=== PATIENT | male | born 1960 | race Caucasian/White ===

== ENCOUNTER 2018-02-06 11:33 | Emergency (ER) | payer OTHER ==
[2018-02-06] MEDS ORDERED: KETOROLAC 30 MG/ML INJ ONE (13:27)
[2018-02-06 13:35] LABS: Urine Blood NEGATIVE (NEG); Urine Glucose NEGATIVE (NEG); Urine Protein NEGATIVE (NEG); Urine Specific Gravity 1.015 (1.005-1.030)
[2018-02-06 13:41] LABS: Urine Bacteria <20 /HPF (NONE SEEN); Urine Culture Reflex Order NOT NEEDED; Urine RBC <5 /HPF (NONE SEEN)
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
== END 2018-02-06 14:04 | disposition home or self-care (01) ==
LOC: ER 11:33
DX: I11.9 Hypertensive heart disease without heart failure (principal); I10 Essential (primary) hypertension; F41.9 Anxiety disorder, unspecified; F32.9 Major depressive disorder, single episode, unspecified; F10.20 Alcohol dependence, uncomplicated
CPT/HCPCS: 81003; 81015; 96372; 99283

== ENCOUNTER 2019-11-23 09:36 | Emergency (ER) | payer MEDICARE ==
--- OUTSIDE RECORDS SUMMARY | 2019-11-23 09:38 | XMS REPORT | Continuity of Care Document ---
:1960 Author Organization [facility] t Address [address] [place] [address] Care Team Providers Name Role Phone UNKNOWN Primary Care Physician Unavailable Fernandez LOPEZ Attending Clinician Unavailable Fernandez LOPEZ Admitting Clinician Unavailable Problems Condition Condition Condition Status Onset Resolution Last Treating Co mments Source Name Details Category Date Date Treatment Clinician Date Pain in Pain in Diagnosis [facility] Subacromia Subacromia Diagnosis Active [facility] bursitis l bursitis Regina kes - of right of right [facility] a shoulder shoulder l [facility] Impingemen Impingemen Diagnosis Active [facility] syndrome t syndrome Regina kes - of right of right [facility] a shoulder shoulder l [facility] Allergies, Adverse Reactions, Alerts This patient has no known allergies or adverse reactions. Medications Ordered Filled Start Stop Current Ordering Indication Dosage Frequency Signature Comments Components Source Medication Medication Date Date Medication? Clinician (SIG) Name Name Lillie Moreira 2019- No [facility] [address] [facility] 09[facility]10 [facility] Terazosin Terazosin Yes [facility] not [facility] HCl HCl [facility] Metformin Metformin Yes [facility] not [facility] HCl HCl [facility] Aspir-81 Aspir-81 Yes [facility] [address] [facility] Gabapentin Gabapentin Yes [facility] not [facility] Procedures This patient has no known procedures. Encounters Start End Encounter Admission Attending Care Care Encounter Source Date/Time Date/Time Type Type Clinicians Facility Department ID 2018-09-10 2018-09-10 [facility] [id number] [facility] [address] 08:30[facility] 08[facility] 2016-11-30 2016-11-30 [id number] 04[facility]:00:00 [facility] Results Test Description Test Time Test Comments Results Result Comments Source POC Glucose, Blood 2016-12-04 11:49:00 Test Item Value Reference Range Interpretation Comme nts POC Glucose (test code = 100 mg/dL 70-115 N If you consider your patient POCGLUC) critically ill, the Be Accu-Chek InformII meters hould not be used for Glucose determi nations.Draw a venous Glucose and sen d to the Main Lab for Analysis. POC Glucose, [id number] 15:29:00 Test Item Value Reference Range Interpretation Comments POC Glucose (test 101 mg/dL 70-115 N Notify RN or MDIf you code = POCGLUC) consider you r patient critically ill, the Be Accu-Chek InformII metershould not be used for Glucose determinations. Draw a venous Glucose and send to the Main Lab for Analysis. POC Glucose, [id number] 12:07:00 Test Item Value Reference Range Interpretation Comments POC Glucose (test 100 mg/dL 70-115 N Notify RN or MDIf you code = POCGLUC) consider you r patient critically ill, the Be Accu-Chek InformII metershould not be used for Glucose determinations. Draw a venous Glucose and send to the Main Lab for Analysis. POC Glucose, [id number] 05:19:00 Test Item Value Reference Range Interpretation Comments POC Glucose (test 103 mg/dL 70-115 N If you con [employer] cleaner your code = POCGLUC) patient crit ically ill, the Be Accu- Chek InformII meters hould not be used for Glu cose determinations. Draw a venous Glucose and send to the Main Lab for Analysis. POC Glucose, [id number] 19:17:00 Test Item Value Reference Range Interpretation Comments POC Glucose (test 110 mg/dL 70-115 N If you con [employer] cleaner your code = POCGLUC) patient crit ically ill, the Be Accu- Chek InformII meters hould not be used for Glu cose determinations. Draw a venous Glucose and send to the Main Lab for Analysis. POC Glucose, [id number] 16:19:00 Test Item Value Reference Range Interpretation Comments POC Glucose (test 110 mg/dL 70-115 N Notify RN or MDIf you code = POCGLUC) consider you r patient critically ill, the Be Accu-Chek InformII metershould not be used for Glucose determinations. Draw a venous Glucose and send to the Main Lab for Analysis. POC Glucose, [id number] 11:39:00 Test Item Value Reference Range Interpretation Comments POC Glucose (test 95 mg/dL 70-115 N Notify RN or MDIf you code = POCGLUC) consider you r patient critically ill, the Be Accu-Chek InformII metershould not be used for Glucose determinations. Draw a venous Glucose and send to the Main Lab for Analysis. POC Glucose, [id number] 06:11:00 Test Item Value Reference Range Interpretation Comments POC Glucose (test 111 mg/dL 70-115 N If you con [employer] cleaner your code = POCGLUC) patient crit ically ill, the Be Accu- Chek InformII meters hould not be used for Glu cose determinations. Draw a venous Glucose and send to the Main Lab for Analysis. POC Glucose, [id number] 19:44:00 Test Item Value Reference Range Interpretation Comments POC Glucose (test 98 mg/dL 70-115 N If you con [employer] cleaner your code = POCGLUC) patient crit ically ill, the Be Accu- Chek InformII meters hould not be used for Glu cose determinations. Draw a venous Glucose and send to the Main Lab for Analysis. POC Glucose, [id number] 15:49:00 Test Item Value Reference Range Interpretation Comments POC Glucose (test 98 mg/dL 70-115 N If you con [employer] cleaner your code = POCGLUC) patient crit ically ill, the Be Accu- Chek InformII meters hould not be used for Glu cose determinations. Draw a venous Glucose and send to the Main Lab for Analysis. POC Glucose, [id number] 05:33:00 Test Item Value Reference Range Interpretation Comments POC Glucose (test 123 mg/dL 70-115 H If you con [employer] cleaner your code = POCGLUC) patient crit ically ill, the Be Accu- Chek InformII meters hould not be used for Glu cose determinations. Draw a venous Glucose and send to the Main Lab for Analysis. POC Glucose, [id number] 19:22:00 Test Item Value Reference Range Interpretation Comments POC Glucose (test 114 mg/dL 70-115 N If you con [employer] cleaner your code = POCGLUC) patient crit ically ill, the Be Accu- Chek InformII meters hould not be used for Glu cose determinations. Draw a venous Glucose and send to the Main Lab for Analysis. POC Glucose, [id number] 16:05:00 Test Item Value Reference Range Interpretation Comments POC Glucose (test 106 mg/dL 70-115 N If you con [employer] cleaner your code = POCGLUC) patient crit ically ill, the Be Accu- Chek InformII meters hould not be used for Glu cose determinations. Draw a venous Glucose and send to the Main Lab for Analysis. RPR, [id number] 14:27:00 Test Item Value Reference Range Interpretation Comments RPR (test code = RPR) Non-Reactive Non-Reactive N POC Glucose, [id number] 12:23:00 Test Item Value Reference Range Interpretation Comments POC Glucose (test 106 mg/dL 70-115 N If you con [employer] cleaner your code = POCGLUC) patient crit ically ill, the Be Accu- Chek InformII meters hould not be used for Glu cose determinations. Draw a venous Glucose and send to the Main Lab for Analysis. Lipid [id number] 09:42:00 Test Item Value Reference Range Interpretation Comments Cholesterol (test 224 mg/dL 0-200 H code = CHOL) Triglycerides (test 169 mg/dL 9-200 N code = TRIG) HDL (test code = 50 mg/dL 40-60 N HDL) Chol/HDL (test code 4.5 Ratio 0.0-5.0 N = CHOLPHDL) LDL, Calculated 140 0-130 H (NOTE)RISK O F HEART (test code = LDLC) DISEASEPu blished by [place] Heart AssociationAnal yte Optim al Boderline Increased RiskC HOL <200 200-239 >240TRI G <150 150-199 >200HDL Male: >60 <40HDL Female: >60 <50 LDL < 100 130-15 9 >160 LDL NEAR OPTIMAL IS 100- 129 VLDL (test code = 34 mg/dL 5-40 N VLDL) LDL/HDL (test code = 3 LDLPHDL) Thyroid Stimulating Hormone (TSH)2016-11-30 09:22:00 Test Item Value Reference Range Interpretation Comments TSH (test code = TSH) 5.30 mIU/mL 0.270-4.200 H
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
[2019-11-23] MEDS ORDERED: SMZ./TMP. 800/160 MG TABLET ONE (10:42)
[2019-11-23] MEDS ORDERED: CODEINE 30MG/APAP 300MG TAB ONE (10:43)
[2019-11-23 10:44] VITALS: BP 139/81; TEMP 98.1; O2SAT 99
== END 2019-11-23 10:40 | disposition home or self-care (01) ==
LOC: ER 09:36
DX: L02.12 Furuncle of neck (principal); I10 Essential (primary) hypertension; F10.20 Alcohol dependence, uncomplicated
CPT/HCPCS: 99283

== ENCOUNTER 2022-03-28 12:56 | Observation (INO) | payer OTHER ==
--- OUTSIDE RECORDS SUMMARY | 2022-03-28 12:59 | XMS REPORT | Continuity of Care Document ---
:1960 Author Organization [facility] t Address [address] [place] [address] Care Team Providers Name Role Phone UNKNOWN, REFFERING Primary Care Physician Unavailable ROSAS LOPEZ Attending Clinician Unavailable ROSAS LOPEZ Admitting Clinician Unavailable Problems Condition Condition Condition Status Onset Resolution Last Treating Co mments Source Name Details Category Date Date Treatment Clinician Date Subacromia Subacromia Diagnosis Active Common l bursitis l bursitis Sp manolo of right of right [facility] shoulder shoulder [facility] Impingemen Impingemen Diagnosis Active Common t syndrome t syndrome Sp manolo of right of right - [facility] shoulder [facility] Pain in Pain in Diagnosis Active Commo n joint of joint of Spirit right right [facility] shoulder [facility] Allergies, Adverse Reactions, Alerts This patient has no known allergies or adverse reactions. Medications Ordered Filled Start Stop Current Ordering Indication Dosage Frequency Signature Comments Components Source Medication Medication Date Date Medication? Clinician (SIG) Name Name Lillie Moreira 2019- No Chi 1 tablet Com 09-10 [facility] 00:00: 00:00 - [facility] 00 :00 [facility] Terazosin Terazosin Yes Chi not Co mmon HCl HCl Thacker defined [facility] Metformin Metformin Yes Chi not Co mmon HCl HCl Thacker defined [facility] Aspir-81 Aspir-81 Yes Chi not Comm on Thacker defined [facility] Gabapentin Gabapentin Yes Chi not Common Thacker defined [facility] Procedures This patient has no known procedures. Encounters Start End Encounter Admission Attending Care Care Encounter Source Date/Time Date/Time Type Type Clinicians Facility Department ID 2018-09-10 2018-09-10 [id number] Common 08:30:00 08:30:00 [facility] 2016-11-30 2016-11-30 Inpatient Reji LOPEZ, [facility] [id number] 04:00:00 04:00:00 [facility] Results Test Description Test Time Test Comments [...] the Main Lab for Analysis. POC Glucose, [id number] 15:29:00 Test Item Value Reference Range Interpretation Comments POC Glucose (test 101 mg/dL 70-115 N Notify RN or MDIf you code = POCGLUC) consider you r patient critically ill, the Be Accu-Chek InformII metershould not be used for Glucose determinations. Draw a venous Glucose and send to the Main Lab for Analysis. POC Glucose, [id number] 12:07:00 Test Item Value Reference Range Interpretation Comments POC Glucose (test 100 mg/dL 70-115 N Notify RN or MDIf you code = POCGLUC) consider you r patient critically ill, the Be Accu-Chek InformII metershould not be used for Glucose determinations. Draw a venous Glucose and send to the Main Lab for Analysis. POC Glucose, [id number] 05:19:00 Test Item Value Reference Range Interpretation Comments POC Glucose (test 103 mg/dL 70-115 N If you con body shop floorperson your code = POCGLUC) patient crit ically ill, the Be Accu- Chek InformII meters hould not be used for Glu cose determinations. Draw a venous Glucose and send to the Main Lab for Analysis. POC Glucose, [id number] 19:17:00 Test Item Value Reference Range Interpretation Comments POC Glucose (test 110 mg/dL 70-115 N If you con body shop floorperson your code = POCGLUC) patient crit ically ill, the Be Accu- Chek InformII meters hould not be used for Glu cose determinations. Draw a venous Glucose and send to the Main Lab for Analysis. POC Glucose, [id number] 16:19:00 Test Item Value Reference Range Interpretation Comments POC Glucose (test 110 mg/dL 70-115 N Notify RN or MDIf you code = POCGLUC) consider you r patient critically ill, the Be Accu-Chek InformII metershould not be used for Glucose determinations. Draw a venous Glucose and send to the Main Lab for Analysis. POC Glucose, [id number] 11:39:00 Test Item Value Reference Range Interpretation Comments POC Glucose (test 95 mg/dL 70-115 N Notify RN or MDIf you code = POCGLUC) consider you r patient critically ill, the Be Accu-Chek InformII metershould not be used for Glucose determinations. Draw a venous Glucose and send to the Main Lab for Analysis. POC Glucose, [id number] 06:11:00 Test Item Value Reference Range Interpretation Comments POC Glucose (test 111 mg/dL 70-115 N If you con body shop floorperson your code = POCGLUC) patient crit ically ill, the Be Accu- Chek InformII meters hould not be used for Glu cose determinations. Draw a venous Glucose and send to the Main Lab for Analysis. POC Glucose, [id number] 19:44:00 Test Item Value Reference Range Interpretation Comments POC Glucose (test 98 mg/dL 70-115 N If you con body shop floorperson your code = POCGLUC) patient crit ically ill, the Be Accu- Chek InformII meters hould not be used for Glu cose determinations. Draw a venous Glucose and send to the Main Lab for Analysis. POC Glucose, [id number] 15:49:00 Test Item Value Reference Range Interpretation Comments POC Glucose (test 98 mg/dL 70-115 N If you con body shop floorperson your code = POCGLUC) patient crit ically ill, the Be Accu- Chek InformII meters hould not be used for Glu cose determinations. Draw a venous Glucose and send to the Main Lab for Analysis. POC Glucose, [id number] 05:33:00 Test Item Value Reference Range Interpretation Comments POC Glucose (test 123 mg/dL 70-115 H If you con body shop floorperson your code = POCGLUC) patient crit ically ill, the Be Accu- Chek InformII meters hould not be used for Glu cose determinations. Draw a venous Glucose and send to the Main Lab for Analysis. POC Glucose, [id number] 19:22:00 Test Item Value Reference Range Interpretation Comments POC Glucose (test 114 mg/dL 70-115 N If you con body shop floorperson your code = POCGLUC) patient crit ically ill, the Be Accu- Chek InformII meters hould not be used for Glu cose determinations. Draw a venous Glucose and send to the Main Lab for Analysis. POC Glucose, [id number] 16:05:00 Test Item Value Reference Range Interpretation Comments POC Glucose (test 106 mg/dL 70-115 N If you con body shop floorperson your code = POCGLUC) patient crit ically ill, the Be Accu- Chek InformII meters hould not be used for Glu cose determinations. Draw a venous Glucose and send to the Main Lab for Analysis. RPR, [id number] 14:27:00 Test Item Value Reference Range Interpretation Comments RPR (test code = RPR) Non-Reactive Non-Reactive N POC Glucose, [id number] 12:23:00 Test Item Value Reference Range Interpretation Comments POC Glucose (test 106 mg/dL 70-115 N If you con body shop floorperson your code = POCGLUC) patient crit ically ill, the Be Accu- Chek InformII meters hould not be used for Glu cose determinations. Draw a venous Glucose and send to the Main Lab for Analysis. Lipid [id number] 09:42:00 Test Item Value Reference Range Interpretation Comments Cholesterol (test 224 mg/dL 0-200 H code = CHOL) Triglycerides (test 169 mg/dL 9-200 N code = TRIG) HDL (test code = 50 mg/dL 40-60 N HDL) Chol/HDL (test code 4.5 Ratio 0.0-5.0 N = CHOLPHDL) LDL, Calculated 140 0-130 H (NOTE)RISK O F HEART (test code = LDLC) DISEASEPu blished by Swedish Heart AssociationAnal yte Optimal Boderli ne Increased RiskC HOL <200 200-239 >240TR IG <150 150-199 >200HDL Male: >60 <40HDL Fema le: >60 <50LDL < 100 130-159 >160LDL NEAR OPTIMAL IS 100- 129 VLDL (test code = 34 mg/dL 5-40 N VLDL) LDL/HDL (test code = 3 LDLPHDL) Thyroid Stimulating Hormone (TSH)2016-11-30 09:22:00 Test Item Value Reference Range Interpretation Comments TSH (test code = TSH) 5.30 mIU/mL 0.270-4.200 H
--- NOTE | 2022-03-28 13:27 | RAD REPORT ---
EXAM DESCRIPTION: RAD - Chest Single View - 03/28/2022 1:20 pm CLINICAL HISTORY: syncope COMPARISON: CHEST SINGLE VIEW dated 06/11/2013; CHEST SINGLE VIEW dated 07/13/2009 FINDINGS: Lines: None. Lungs: No evidence of edema or pneumonia. Pleural: No significant pleural effusions or pneumothorax. Cardiac: The heart size is within normal limits. Mediastinum: Within normal limits. Bones: No acute fractures. Other: None IMPRESSION: No acute cardiopulmonary disease.
[2022-03-28 13:32] LABS: Absolute Lymphocytes (CBC) 1.6 K/uL (0.7-4.9); Hematocrit 42.1 % (39.6-49.0); Lymphocytes % 22.7 % (15.3-44.8); MCV 97.8 fL (80-100); MPV 8.7 fL (7.6-11.3)
[2022-03-28 13:56] LABS: Albumin 3.4 g/dL (3.4-5.0); Bilirubin Direct 0.4 mg/dL (0-0.2); Bilirubin Total 1.2 mg/dL (0.2-1.0); Protein, Total 7.1 g/dL (6.4-8.2); Troponin High Sensitivity 17.6 pg/mL (<58.9)
[2022-03-28 14:01] LABS: Magnesium 1.2 mg/dL (1.6-2.4)
[2022-03-28 14:02] LABS: Potassium 2.3 mmol/L (3.5-5.1)
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
[2022-03-28] MEDS ORDERED: POTASSIUM CL SA 10 MEQ TAB PO ONE (14:12)
[2022-03-28] MEDS ORDERED: Magnesium Sulfate 2gm IVPB 2 G/50 ML BAG IV ONE (14:12)
[2022-03-28] MEDS ORDERED: KCL 20 MEQ/100 mL IVPB 100 ML IV ONE (14:12)
[2022-03-28] MEDS ORDERED: NA CHLORIDE 0.9% 1,000 ML ONE (14:13)
[2022-03-28 14:38] LABS: Protime INR 1.04
[2022-03-28 14:43] LABS: Anisocytosis 1+; Blood Morphology Comment NOTED (NOT SEEN); Platelet Estimate DECR; White Blood Cell Scan OK (OK)
[2022-03-28 14:48] LABS: SARS-CoV-2 Antigen Rapid Res Negative (Negative)
--- NOTE | 2022-03-28 15:02 | EKG ---
Test Date: 2022-03-28 Test Time: 13:06:25 Straightedge Man: ALEJANDRA MEASUREMENT RESULTS: Intervals: Rate: 76 IN: 198 QRSD: 98 QT: 462 QTc: 519 [place]: P: 81 IN: 198 QRS: 72 T: 56 INTERPRETIVE STATEMENTS: Normal sinus rhythm Prolonged QT Abnormal ECG Compared to ECG 11/28/2016 17:05:46 Prolonged QT interval now present Electronically Signed On 03-28-22 15:02:10 MOVIE THEATER USHER by Pradeep Reed
[2022-03-28] MEDS ORDERED: HYDROCODONE/APAP 5/325 MG TAB PO PRN (15:27)
[2022-03-28] MEDS ORDERED: ACETAMINOPHEN 325 MG TABLET PO PRN (15:27)
[2022-03-28] MEDS ORDERED: ONDANSETRON 4 MG/2 ML VIAL IV PRN (15:30)
[2022-03-28] MEDS ORDERED: LORazepam 2 MG/ML VIAL IV PRN (15:37)
--- NOTE | 2022-03-28 15:40 | P.HP ---
Certification for Inpatient Patient admitted to: Observation With expected LOS: <2 Midnights Patient will require the following post-hospital care: None Practitioner: I am a practitioner with admitting privileges, knowledge of patient current condition, hospital course, and medical plan of care. Services: Services provided to patient in accordance with Admission requirements found in Title 42 Section 412.3 of the Code of Federal Regulations <LukaszmikelVan parekh Izabella - Last Filed: 03/28/22 19:26> Patient History Date of Service: 03/28/22 Reason for admission: Near syncope, DAWNA History of Present Illness: Patient is a 62-year-old male with a past medical history significant for alcohol abuse, anxiety disorder, depression, DM 2, hypertension who presents with complaint of hypotension and near syncope which occurred this morning while walking in his home. Patient reported that he took Viagra yesterday and drank some alcohol. As patient woke up this morning and was walking to the bathroom patient felt lightheaded, dizzy and almost passed out. Patient had to quickly sit down. Patient reported associated signs and symptoms of poor appetite and tremors. Patient denies any other signs or symptoms. Symptoms are aggravated or relieved by nothing. Patient was brought to the hospital for medical evaluation. - Past Medical/Surgical History -: Anxiety disorder -: Depression -: DM2 with neuropathy -: Alcohol abuse -: Hypertension Past Surgical History: Reviewed- Non-Contributory - Family History Family History: Reviewed- Non-Contributory - Social History Smoking Status: Unknown if ever smoked Smoking therapy provided: No Alcohol use: Yes CD- Drugs: No Caffeine use: Yes Place of Residence: Home <Van Fisher - Last Filed: 03/28/22 19:26> Date of Service: 03/29/22 <Chris Guevara - Last Filed: 03/29/22 11:11> Allergies No Known Drug Allergies Allergy (Unverified 03/19/14 22:03) Unknown No Known Allergies Allergy (Uncoded 11/30/16 03:03) Unknown Home Medications: Gabapentin 800 mg PO TID 03/28/22 Quetiapine Fumarate [Seroquel] 400 mg PO BEDTIME 03/28/22 chlordiazePOXIDE HCl [Librium*] See Rx Instructions .ROUTE .COMPLEX 4 Days #8 cap 03/29/22 Review of Systems General: Other (Poor appetite, treatments) Eyes: Unremarkable ENT: Unremarkable Respiratory: Unremarkable Cardiovascular: Light Headedness Gastrointestinal: Unremarkable Genitourinary: Unremarkable Musculoskeletal: Pedal edema Integumentary: Unremarkable Neurological: Other (Near syncope, dizziness ) Lymphatics: Unremarkable <PhillipNaderzaira Parekh - Last Filed: 03/28/22 19:26> Physical Examination - Physical Exam General: Alert, In no apparent distress, Oriented x3, Cooperative HEENT: Atraumatic, PERRLA, Mucous membr. moist/pink, EOMI, Sclerae nonicteric Neck: Supple, 2+ carotid pulse no bruit, No LAD, Without JVD or thyroid abnormality Respiratory: Clear to auscultation bilaterally, Normal air movement Cardiovascular: Regular rate/rhythm, Normal S1 S2 Capillary refill: <2 Seconds Gastrointestinal: Normal bowel sounds, Soft and benign, No tenderness Musculoskeletal: No clubbing, No swelling, No tenderness Integumentary: No rashes, No breakdown, No significant lesion Neurological: Normal gait, Normal speech, Normal tone, Normal affect Lymphatics: No axilla or inguinal lymphadenopathy - Studies Laboratory Data (last 24 hrs) 03/28/22 14:19: PT 11.4, INR 1.04, APTT 32.0 03/28/22 13:24: WBC 6.90, Hgb 14.6, Hct 42.1, Plt Count 124 L 03/28/22 13:24: Sodium 135 L, Potassium 2.3 L*, BUN 19 H, Creatinine 1.96 H, Gl ucose 104, Magnesium 1.2 L*, Total Bilirubin 1.2 H, AST 64 H, ALT 77 H, Alkaline Phosphatase 78 <Van Fisher - Last Filed: 03/28/22 19:26> - Studies Laboratory Data (last 24 hrs) 03/28/22 14:19: PT 11.4, INR 1.04, APTT 32.0 03/28/22 13:24: Phosphorus 2.7, Magnesium 1.2 L* 03/28/22 13:24: WBC 6.90, Hgb 14.6, Hct 42.1, Plt Count 124 L 03/28/22 13:24: Sodium 135 L, Potassium 2.3 L*, BUN 19 H, Creatinine 1.96 H, Glucose 104, Magnesium 1.2 L*, Total Bilirubin 1.2 H, AST 64 H, ALT 77 H, Alkaline Phosphatase 78 <Chris Guevara - Last Filed: 03/29/22 11:11> Assessment and Plan - Plan --Near syncope. Likely secondary to hypotension and volume depletion. We will get some understanding vital signs. Continue IV hydration. Continue supportive care. --DAWNA. Likely secondary to volume depletion. Continue IV hydration. We will continue to monitor renal functions. -- Hypokalemia\hypomagnesemia. Replete as needed. Will reassess levels. --Alcohol abuse. Patient with noted withdrawal Symptoms. Patient placed on banana bag, Librium and Ativan as needed. [facility] protocol. --Hypertension. Patient currently hypotensive. Hold off on BP meds. Continue IV hydration. We will continue to monitor blood pressure levels. --Anxiety disorder\depression. Continue home medication. --DM2 with neuropathy. BS monitoring with sliding scale insulin. Continue gabapentin for his neuropathy. --DVT prophylaxis with heparin subQ. Discharge Plan: Home Plan to discharge in: 48 Hours - Advance Directives Does patient have a Living Will: No Does patient have a Durable POA for Healthcare: No - Code Status/Comfort Care Code Status Assessed: Yes Physician Review: Patient Assessed, Agree with Above Assessment and Plan Critical Care: No <Van Fisher - Last Filed: 03/28/22 19:26> Physician Review: Patient Assessed, Agree with Above Assessment and Plan <Chris Guevara - Last Filed: 03/29/22 11:11>
[2022-03-28] MEDS ORDERED: LORazepam 2 MG/ML VIAL IV SCH (16:00)
[2022-03-28 16:29] LABS: Phosphorus 2.7 mg/dL (2.5-4.9); Thyroid Stimulating Hormone 3.59 uIU/mL (0.358-3.740)
[2022-03-28 16:30] LABS: Magnesium 1.2 mg/dL (1.6-2.4)
[2022-03-28] MEDS: chlordiazePOXIDE HCl 25 MG CAP PO SCH (17:32)
[2022-03-28] MEDS: NA CHLORIDE 0.9% 1,000 ML IV SCH (17:32)
[2022-03-28 17:42] VITALS: BMI 36.2
[2022-03-28] MEDS ORDERED: GLUCAGON 1 MG/VIAL IM PRN (19:24)
[2022-03-28] MEDS ORDERED: D50W 25 GM/50 ML SYRINGE IV PRN (19:24)
[2022-03-28] MEDS ORDERED: D10W 125 ML IV PRN (19:29)
[2022-03-28] MEDS ORDERED: PNEUMOCOCCAL VACCINE 0.5 ML IMVAC ONE (20:00)
[2022-03-28] MEDS ORDERED: INFLUENZA VACCINE (for 6+ mo) 0.5 ML DOSE IMVAC ONE (20:00)
[2022-03-28] MEDS: INSULIN -REGULAR HUMAN 50 UNIT/0.5 ML ML SQ SCH (21:00)
[2022-03-28] MEDS ORDERED: HOME MED 1 EA UNK (Gabapentin [Gabapentin] 800 MG Tablet) PO SCH (21:00)
[2022-03-28] MEDS ORDERED: HOME MED 1 EA UNK (Quetiapine Fumarate [Seroquel] 200 MG Tablet) PO SCH (21:00)
[2022-03-28] MEDS ORDERED: QUETIAPINE 100MG TAB PO SCH (21:00)
[2022-03-28 21:13] LABS: Potassium 3.3 mmol/L (3.5-5.1)
[2022-03-28] MEDS: HEPARIN 5000 UNIT/ML 1 ML VIAL SQ SCH (21:29)
[2022-03-28] MEDS: GABAPENTIN 400 MG CAP PO SCH (21:29)
[2022-03-29] MEDS: NA CHLORIDE 0.9% 1,000 ML IV SCH (02:00)
[2022-03-29] MEDS: chlordiazePOXIDE HCl 25 MG CAP PO SCH ×3 (02:00→06:03)
[2022-03-29 04:40] LABS: Potassium 3.3 mmol/L (3.5-5.1); Protein, Total 6.4 g/dL (6.4-8.2)
[2022-03-29 04:42] LABS: Lymphocytes % 31.1 % (15.3-44.8); MCV 99.3 fL (80-100); MPV 9.1 fL (7.6-11.3); RBC Red Blood Cell Count 4.13 M/uL (4.33-5.43)
[2022-03-29] MEDS: INSULIN -REGULAR HUMAN 50 UNIT/0.5 ML ML SQ SCH ×2 (07:30→11:13)
[2022-03-29 08:13] VITALS: O2SAT 96
[2022-03-29] MEDS: HEPARIN 5000 UNIT/ML 1 ML VIAL SQ SCH (08:27)
[2022-03-29] MEDS: GABAPENTIN 400 MG CAP PO SCH (08:27)
[2022-03-29] MEDS ORDERED: TERAZOSIN HCL 5 MG CAP PO SCH (09:00)
[2022-03-29] MEDS ORDERED: POTASSIUM CL SA 10 MEQ TAB PO ONE ×2 (09:00)
[2022-03-29] MEDS ORDERED: TERAZOSIN HCL 10 MG PO SCH (09:00)
[2022-03-29] MEDS ORDERED: ASPIRIN 81 MG CHEWABLE TABLET PO SCH (09:00)
[2022-03-29] MEDS ORDERED: FOLIC ACID 1 MG, MULTIVITAMINS INJ 10 ML, THIAMINE HCL 100 MG in NA CHLORIDE 0.9% 1,000 ML IV SCH (09:00)
--- NOTE | 2022-03-29 11:05 | P.CNS ---
Date of Consult: 03/29/22 Reason for Consult: DAWNA, hypokalemia Requesting Physician: Chris Guevara Chief Complaint: Near syncope, DAWNA History of Present Illness: Patient is a 62-year-old male with a past medical history significant for alcohol abuse per reports, anxiety disorder, depression, BPH on a alpha nixon agent to help with dribbling of urine who presented with complaint of low BP and near syncope which occurred yesterday morning while walking in his home. Patient reported that he took some Viagra the night prev and while walking to the bathroom patient felt lightheaded, dizzy and almost passed out. Patient's initial recorded BP were quite low but now better s/s/p IVF hydration, he feels much better overall. He denies CP, dyspnea or abd pain. Allergies No Known Drug Allergies Allergy (Unverified 03/19/14 22:03) Unknown No Known Allergies Allergy (Uncoded 11/30/16 03:03) Unknown Home Medications: Gabapentin 800 mg PO TID 03/28/22 Quetiapine Fumarate [Seroquel] 400 mg PO BEDTIME 03/28/22 chlordiazePOXIDE HCl [Librium*] See Rx Instructions .ROUTE .COMPLEX 4 Days #8 cap 03/29/22 - Past Medical/Surgical History Diabetic: Yes -: Anxiety disorder -: Depression -: DM2 with neuropathy -: Alcohol abuse -: Hypertension - Social History Alcohol use: Yes CD- Drugs: No Caffeine use: Yes Place of Residence: Home Review of Systems General: Weakness Eyes: Unremarkable ENT: Unremarkable Respiratory: Unremarkable Cardiovascular: Light Headedness, As per HPI Gastrointestinal: Unremarkable Genitourinary: Unremarkable Musculoskeletal: Unremarkable Integumentary: Unremarkable Neurological: Unremarkable Lymphatics: Unremarkable Physical Examination Temp Pulse Resp BP Pulse Ox 97.4 F 75 16 129/63 98 03/29/22 08:00 03/29/22 08:00 03/29/22 08:00 03/29/22 08:00 03/29/22 08:00 General: Alert, In no apparent distress, Cooperative HEENT: Atraumatic, Normocephalic, Mucous membr. moist/pink Neck: Supple Respiratory: Clear to auscultation bilaterally, Normal air movement Cardiovascular: No edema, Regular rate/rhythm Gastrointestinal: Soft and benign, Non-distended, No tenderness Musculoskeletal: No contractures Integumentary: No rashes, No tenderness/swelling Neurological: Normal speech, Normal affect Laboratory Data (last 24 hrs) 03/28/22 14:19: PT 11.4, INR 1.04, APTT 32.0 03/28/22 13:24: Phosphorus 2.7, Magnesium 1.2 L* 03/28/22 13:24: WBC 6.90, Hgb 14.6, Hct 42.1, Plt Count 124 L 03/28/22 13:24: Sodium 135 L, Potassium 2.3 L*, BUN 19 H, Creatinine 1.96 H, Glucose 104, Magnesium 1.2 L*, Total Bilirubin 1.2 H, AST 64 H, ALT 77 H, Alkaline Phosphatase 78 Conclusions/Impression: A/P) 1. Stage 1 DAWNA 2nd to intra vascular vol depletion, hypotension, other - resolving with Cr level trending downwards post hydration 2. Marked hypokalemia on admission in the setting of hypomagnesemia, likely total body depletion with dieting pt had been on and other poor PO intake. S/p repletion, pt does not have any listed diuretics. No other metab aciodosis to suggest RTA or other but will f/u as OP 3. Hypomagnesemia -repleted, will f/u levels as OP and if recurrently low, will investigate and place on scheduled MgOx replacement 4. Hypotension 2nd to medication effect, other -resolved, will suspend alpha nixon Terazosin and avoid use of PDE inhibitors. 5. Possible BPH -PSA was not elevated in the past, will have pt monitor symptoms of alpha nixon therapy and restart with alternative if indicated.
--- NOTE | 2022-03-29 11:17 | P.DS ---
Admission Date: 03/28/22 Discharge Date: 03/29/22 Disposition: ROUTINE DISCHARGE Discharge Condition: GOOD Reason for Admission: Near syncope, DAWNA Consultations: 1. 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 Fernie Israel is a 62 year old male with a past medical history significant for alcohol use disorder, type 2 diabetes mellitus, hypertension, anxiety, and depressive disorder who was admitted to the [facility] on 03/28/2022 for presyncope. He was admitted to the Medicine service. Upon further evaluation, he was found to be hypotensive with a blood pressure as low as 76/43. His laboratory evaluation was notable for a creatinine of 1.96, a potassium of 2.3, and a magnesium of 1.2. He stated that he took sildenafil and terazosin at home prior to the onset of his symptoms. He was admitted to the hospital, treated with IV fluids, and monitored overnight. This morning, he stated that he felt very well. His blood pressure has now normalized. Per nursing staff, he has been up and ambulatory around the room without any symptoms of orthostasis. Nephrology was consulted and he was evaluated by Dr. Paez. He has cleared him for discharge with outpatient follow-up. I advised that, prior to discharge, we obtain a transthoracic echocardiogram to look for any cardiogenic etiologies for his presyncope; however, he stated that he wants to be discharged immediately since he is feeling better. I spoke with Dr. Das and reviewed his case, he felt that he was stable to be discharged with an outpatient transthoracic echocardiog nicola. I have advised that he discontinue sildenafil and terazosin at this time. I have also recommended that he follow-up with Urology to explore alternative treatment options for erectile dysfunction and benign prostatic hyperplasia. Of note, on presentation, he was found to have mild alcohol withdrawal tremors. These have now resolved. He was counseled on alcohol cessation, and verbalized willingness to quit. He was provided with an additional 4 days of chlordiazepoxide to complete a 5-day taper. Prior to the controlled substance prescription, a PDMP review was conducted. Over the last 2 years, he has received 13 prescriptions from 2 providers to 2 pharmacies. His opioid overdose risk score is 190. On 03/29/2022, he was seen on morning rounds and deemed medically stable for discharge. He was discharged with instructions to schedule follow-up appointments with his PCP (MARE Jeffery), with Cardiology (Dr. Das), with Nephrology (Dr. Paez), and with Urology (Dr. Lozano). He was provided a prescription for chlordiazepoxide. He and his family members were given the opportunity to ask questions and reported no further questions. Furthermore, all questions were answered to the best of my ability. A copy of this discharge summary will be sent to the above providers to facilitate continuity of care. Today, I personally spent 25 minutes on his case, of which greater than 50% of the time was spent in patient education, counseling, and coordination of care as described above. Vital Signs/Physical Exam: Temp Pulse Resp BP Pulse Ox 97.4 F 75 16 129/63 98 03/29/22 08:00 03/29/22 08:00 03/29/22 08:00 03/29/22 08:00 03/29/22 08:00 General: Alert, In no apparent distress, Oriented x3 HEENT: Atraumatic, Mucous membr. moist/pink, EOMI, Sclerae nonicteric Neck: JVD not distended Respiratory: Clear to auscultation bilaterally, Normal air movement Cardiovascular: No edema, Regular rate/rhythm, Normal S1 S2, No gallops, No rubs, No murmurs Gastrointestinal: Normal bowel sounds, Soft and benign, Non-distended, No tenderness, No rebound, No guarding Musculoskeletal: No clubbing Integumentary: No rashes Neurological: Normal speech, Cranial nerves 3-12 intact, Normal affect Laboratory Data at Discharge: WBC 6.30 K/uL (4.3-10.9) 03/29/22 02:53 Hgb 14.0 g/dL (13.6-17.9) 03/29/22 02:53 Hct 41.0 % (39.6-49.0) 03/29/22 02:53 Plt Count 115 K/uL (152-406) L 03/29/22 02:53 PT 11.4 SECONDS (9.5-12.5) 03/28/22 14:19 INR 1.04 03/28/22 14:19 APTT 32.0 SECONDS (24.3-36.9) 03/28/22 14:19 Sodium 138 mmol/L (136-145) 03/29/22 02:53 Potassium 3.3 mmol/L (3.5-5.1) L 03/29/22 02:53 BUN 20 mg/dL (7-18) H 03/29/22 02:53 Creatinine 1.53 mg/dL (0.70-1.30) H 03/29/22 02:53 Glucose 95 mg/dL (74-106) 03/29/22 02:53 Phosphorus 2.7 mg/dL (2.5-4.9) 03/28/22 13:24 Magnesium 1.9 mg/dL (1.6-2.4) 03/28/22 20:42 Total Bilirubin 1.0 mg/dL (0.2-1.0) 03/29/22 02:53 AST 62 U/L (15-37) H 03/29/22 02:53 ALT 67 U/L (16-61) H 03/29/22 02:53 Alkaline Phosphatase 67 U/L (45-117) 03/29/22 02:53 Triglycerides 240 mg/dL (<150) H 03/29/22 02:53 Cholesterol 161 mg/dL (<200) 03/29/22 02:53 HDL Cholesterol 37 mg/dL (40-60) L 03/29/22 02:53 Cholesterol/HDL Ratio 4.35 03/29/22 02:53 Home Medications: RX: Gabapentin 800 mg PO TID 03/28/22 RX: Quetiapine Fumarate [Seroquel] 400 mg PO BEDTIME 03/28/22 RX: chlordiazePOXIDE HCl [Librium*] See Rx Instructions .ROUTE .COMPLEX 4 Days #8 cap 03/29/22 New Medications: RX: chlordiazePOXIDE HCl [Librium*] See Rx Instructions .ROUTE .COMPLEX 4 Days #8 cap Physician Discharge Instructions: 1. Please call and schedule a follow-up appointment with your PCP (MARE Jeffery) in 3-5 days 2. Please call and schedule a follow-up appointment with Nephrology (Dr. Paez) in 5-7 days - He will recheck your blood work to make sure that your electrolytes and kidney function have improved 3. Please call and schedule a follow-up appointment with Cardiology (Dr. Das) in 3-5 days - I have spoken with him and he will schedule you for the heart ultrasound in his clinic 4. Please call and schedule a follow-up appointment with Urology (Dr. Lozano) in 1-2 weeks - Please discuss alternative treatment options for erectile dysfunction and enlarged prostate - Please stop taking Viagra and terazosin Diet: AHA Activity: Ad katherine Followup: Ananda Paez [ACTIVE - CAN ADMIT] - Curry Das MD [ACTIVE - CAN ADMIT] - Gina Jeffery NP [ALLIED HEALTH PROFESSIONAL] - Blake Lozano [ACTIVE - CAN ADMIT] - Time spent managing pt's care (in minutes): 25
[2022-03-29 14:21] VITALS: BP 117/76; TEMP 97.6
--- NOTE | 2022-03-30 15:34 | EKG ---
Test Date: 2022-03-29 Test Time: 11:48:18 Ear Specialist: TW MEASUREMENT RESULTS: Intervals: Rate: 77 UT: 184 QRSD: 90 QT: 404 QTc: 457 [place]: P: 46 UT: 184 QRS: 56 T: 14 INTERPRETIVE STATEMENTS: Normal sinus rhythm ST abnormality, possible digitalis effect Abnormal ECG Compared to ECG 03/28/2022 13:06:25 ST (T wave) deviation now present Prolonged QT interval no longer present Electronically Signed On 03-30-22 15:32:21 WATER POLLUTION CONTROL INSPECTOR by Pradeep Reed
== END 2022-03-29 12:45 | disposition home or self-care (01) ==
LOC: ER 12:56 → ERHOLD 15:21 → 2ND 16:12
PROVIDERS: ADMIT Internal Medicine; ATTEND Internal Medicine
DX: R55 Syncope and collapse (principal); N17.9 Acute kidney failure, unspecified; I95.9 Hypotension, unspecified; E86.0 Dehydration; F41.9 Anxiety disorder, unspecified; E11.9 Type 2 diabetes mellitus without complications; I10 Essential (primary) hypertension; F10.10 Alcohol abuse, uncomplicated; E87.6 Hypokalemia; E83.42 Hypomagnesemia; E11.40 Type 2 diabetes mellitus with diabetic neuropathy, unspecified; N40.0 Benign prostatic hyperplasia without lower urinary tract symptoms; Z20.822 Contact with and (suspected) exposure to COVID-19; Z23 Encounter for immunization
CPT/HCPCS: 96365; 96367; 93005; 85025 ×2; 80048 ×2; 36415; 83735 ×3; 82550; 84100; 85610; 80061; 82947 ×3; 80076; 85730; 84443; 84484; 84439; 80053; 83880; 71045; 99285; 96366; 87811; J3411; J1644 ×2; J3480; J3475; J7030 ×5; G0378